=== PATIENT | female | born 1935 | race Caucasian/White ===

== ENCOUNTER 2016-10-18 08:06 | Day surgery (SDC) | payer OTHER, MEDICAID ==
[~2016-10-18] VITALS: Ht 160 cm; Wt 62.1 kg
[2016-10-18] MEDS: MIDAZOLAM HCL 5 MG/5 ML VIAL ONE ×3 (08:53→08:59)
[2016-10-18] MEDS: fentaNYL CITRATE/PF 100 MCG/2 ML AMP ONE ×3 (08:53→08:59)
[2016-10-18 14:13] VITALS: BP_SYST 178
== END 2016-10-18 10:47 | disposition home or self-care (01) ==
LOC: SDS 08:06 → SMU 08:21 → SDS 10:47
PROVIDERS: ATTEND Internal Medicine
DX: K62.5 Hemorrhage of anus and rectum (principal); R13.10 Dysphagia, unspecified; R10.13 Epigastric pain; K64.8 Other hemorrhoids; K29.80 Duodenitis without bleeding; R19.4 Change in bowel habit; I10 Essential (primary) hypertension; I50.9 Heart failure, unspecified; E11.9 Type 2 diabetes mellitus without complications; E78.5 Hyperlipidemia, unspecified; Z87.891 Personal history of nicotine dependence; M19.90 Unspecified osteoarthritis, unspecified site; Z90.49 Acquired absence of other specified parts of digestive tract
CPT/HCPCS: 43239; 45380; 82962; 88305; 88312; 88313; J2250; J3010